=== PATIENT | female | born 1985 | race Caucasian/White ===

== ENCOUNTER 2016-07-27 18:15 | Emergency (ER) | payer MEDICAID ==
[~2016-07-27 18:15] MED LIST: HYDR-3580 PO; NAPR-576 PO; OSEL75 PO; RANI1TAB5 PO; ZOFR4TAB3 SL
--- NOTE | 2016-07-27 19:20 | PD ---
HPI Travel History International Travel<30 Days: No Contact w/Intl Traveler<30Days: No Known Affected Area: No History of Present Illness HPI This patient is a 30-year-old 4 para 3003 EDC is December 31, 2016 this is based on an ultrasound that was done in the main emergency room on May 14 2016 she was approximately [address] the patient now at 17 weeks and 5 days she presents with chief complaint of seeing a pinkish discharge on the tissue when she wipes and cramping in her lower abdomen she states this has been going on for about a week she has not had to put a pad on and there is no blood in her underwear no bright red blood no care to date she has an appointment with Radha Henry this next Positive chills no fever positive nausea and occasional vomiting no diarrhea or constipation some pressure with urination History Past Medical History Narrative Medical Patient is allergic to codeine and contrast media Aparna shellfish Toradol tramadol ultrasound Zithromax Omnipaque Patient has been evaluated for possible seizure disorder she is on no medication however she is seeing a neurologist Obstetric History Obstetric History First baby born 2008 male weight 6 lbs. 11 oz. vaginal delivery second baby born 2010 female infant weight 7 lbs. 5 oz. vaginal delivery third baby born 2014 male weight 6 lbs. 11 oz. vaginal delivery Past Surgical History Narrative Surgical L4 and L5 spinal fusion Family History Narrative Family History Diabetes cancer heart disease Social History Alcohol Use: No Tobacco Use: Yes (half pack of cigarettes per day) Allergies-Medications (Allergen,Severity, Reaction): Coded Allergies: Contrast Media (Verified Allergy, Severe, Itching, 05/14/16) "Itching all over" Omnipaque (IOHEXOL) (Verified Allergy, Severe, ITCHING, 05/14/16) Shellfish (Verified Allergy, Severe, "ANAPHYLAXIS", 05/14/16) Ultram (Verified Allergy, Severe, chest tightness, 05/14/16) Zithromax (Verified Allergy, Severe, "ANAPHYLAXIS", 05/14/16) Codeine (Verified Allergy, Unknown, 05/14/16) Toradol (Verified Allergy, Unknown, 05/14/16) Tramadol (Verified Allergy, Unknown, 05/14/16) Uncoded Allergies: APARNA (Allergy, Unknown, 05/14/16) Home Meds Active Scripts Ranitidine (Ranitidine 75)75 Mg Tab75 Mg PO BID #30 TAB Ref 0 Take 30 to 60 minutes before eating food or drinking beverages that cause heartburn. Prov:Rose Bolivar MD 05/14/16 Ondansetron Odt (Zofran Odt)4 Mg Tab4 Mg SL Q12HR PRN (Nausea/Vomiting) #20 TAB Ref 0 Prov:Rose Bolivar MD 05/14/16 Oseltamivir Phosphate 75 mg (Tamiflu 75 mg)75 Mg Cap1 Cap PO BID #10 CAP Prov:Arnulfo Sexton MD R3 11/18/15 Naproxen 500 Mg [id number] Mg PO BID PRN (pain) #60 TAB Prov:Jolie Chen MD 09/30/15 Reported Medications Hydrocodone/Acetaminophen 7.5 mg/325 mg 1 Tab1 Tab PO TID PRN (PAIN) 05/20/14 Review of Systems General / Constitutional: Chills Eyes: No: Diploplia, Blurred Vision, Visual changes, Pain, Photophobia, Other HENT: No: Headaches, Vertigo, Dental Difficulties, Lightheadedness, Other Cardiovascular: No: Irregular Rhythm, Chest Pain or Discomfort, Palpitations, Tachycardia, Syncope, Varicosities, Edema, Cyanosis, Other Respiratory: No: Cough, Short of Breath, Wheezing, Other Gastrointestinal: Abdominal Pain Genitourinary: Dysuria, Other (pinkish discharge) Musculoskeletal: No: Limited ROM, Weakness, Cramping, Edema, Pain, Other Skin: No Rash, No Itching, No Dryness, No Lumps, No Change in Pigmentation, No Change in Nails, No Alopecia, No Lesions, No Breast Lumps, No Breast Tenderness , No Breast Swelling, No Other Neurologic: No: Weakness, Dizziness, Syncope, Focal Abnormalities, Coordination Problem, Headache, Slurred Speech, Seizures, Other Psychiatric: No: Anxiety, Depression, Suicidal Ideations, Disorder of Thought, Mood Disorder, Substance Abuse, Homicidal Ideation, Other Physical Exam Narrative GENERAL: Well-nourished, well-developed patient. Alert oriented 3 and cooperative in no acute distress SKIN: Warm and dry. HEAD: Normocephalic and atraumatic. EYES: No scleral icterus. No injection or drainage. Conjunctiva are pink ENT: No nasal drainage noted. Mucous membranes pink. Airway patent. NECK: Supple, trachea midline. No JVD. No adenopathy CARDIOVASCULAR: Regular rate and rhythm without murmurs, gallops, or rubs. RESPIRATORY: Breath sounds equal bilaterally. No accessory muscle use. ABDOMEN/GI: Gravid uterus consistent with 18 weeks size mild tenderness over the right and left round ligament no epigastric or right upper quadrant tenderness Gravid to [-] weeks size 18 weeks size Fundal Height: [-] GENITOURINARY: Speculum exam is done there is no pink no brown no red and vagina no active bleeding thin white discharge cervix is visibly closed External Genitalia: intact and normal in appearance BUS glands: [-] Cervix: [-] Posterior firm Dilatation: [-] 0 Effacement: [-] 0 Station: [-] Presentation: [-] Breech on ultrasound Membranes: [intact Uterine Contractions: [-]0 FHT's: Category: [-] Baseline: [-] 140s 150s Reactive: [-] Variability: [-] Decels: [-] EXTREMITIES: No cyanosis or edema. 2+ reflexes BACK: Nontender without obvious deformity. No CVA tenderness. NEUROLOGICAL: Awake and alert. Motor and sensory grossly within normal limits. Five out of 5 muscle strength in all muscle groups. Normal speech. Data Data Vital Signs Reviewed: Yes (blood pressure is 114/62 pulse 97 temperature is 98.5) MDM Medical Record Reviewed: No (no care to date review of ultrasound from previous ER visit) Interpretation(s) 30-year-old presently at 17 weeks and 5 days No clinical evidence of threatened Rule out UTI with hematuria Narrative Course / MDM Urinalysis culture not indicated trace amount of blood however in the urine As the cervix is long and closed No clinical evidence of threatened We'll push by mouth fluids Patient may take Tylenol by mouth Requests something for nausea will give Zofran 4 mg by mouth single dose With the hematuria Will place patient on Keflex 500 mg by mouth 3 times a day for a total of 7 days As this may indicate a hemorrhagic cystitis Plan By mouth fluid hydration Urinalysis Reevaluation Diagnosis Diagnosis: Primary Impression: with 17 completed weeks gestation Additional Impressions: Spotting affecting in second trimester Hematuria Disposition: 01 DISCHARGE HOME Condition: Stable Leslie Clark MD Jul 27, 2016 19:20
[2016-07-27 20:13] LABS: BLOOD, URINE SMALL (NEG); CALCIUM OXALATE CRYSTALS,URINE OCC /hpf; COMMENT (UR) CULT NOT INDICATED; CULTURE IF INDICATED CULT NOT INDICATED; GLUCOSE,URINE NEG (NEG); KETONE, URINE NEG (NEG); MUCUS URINE FEW /lpf (OCC); NITRITE,URINE NEG (NEG); SQUAMOUS EPITHELIAL CELL URINE <1 /hpf (0-5); URINE COLOR YELLOW (YELLW/STRAW)
[2016-07-27] MEDS ORDERED: ONDANSETRON ODT 4 MG TAB PO ONE (20:30)
[2016-09-11] MEDS ORDERED: HYDR-3535 PO (10:18)
[2016-09-11] MEDS ORDERED: ONDA4TAB7 SL (10:49)
[2016-09-11] MEDS ORDERED: CONCCAP2 PO (10:49)
[2016-09-26] MEDS ORDERED: MUPI2OIN TOPICAL (14:39)
[2016-11-21] MEDS ORDERED: ERYTOIN10 LEFT EYE (11:02)
[2016-11-21] MEDS ORDERED: NITR1CAP36 PO (11:04)
== END 2016-07-27 20:32 | disposition home or self-care (01) ==
LOC: HOBED 18:15
DX: O26.852 Spotting complicating pregnancy, second trimester (principal); Z3A.17 17 weeks gestation of pregnancy
CPT/HCPCS: 76815; 81001

== ENCOUNTER 2016-09-05 17:22 | Emergency (ER) | payer MEDICAID ==
[2016-09-05 19:47] LABS: CALCIUM OXALATE CRYSTALS,URINE MANY /hpf; COMMENT (UR) CULT NOT INDICATED; CULTURE IF INDICATED CULT NOT INDICATED; MUCUS URINE FEW /lpf (OCC); SQUAMOUS EPITHELIAL CELL URINE 1 /hpf (0-5)
[2016-09-05 19:49] LABS: BLOOD, URINE SMALL (NEG); GLUCOSE,URINE 100 mg/dL (NEG); KETONE, URINE TRACE mg/dL (NEG); NITRITE,URINE NEG (NEG); URINE COLOR YELLOW (YELLW/STRAW)
--- NOTE | 2016-09-05 20:01 | PD ---
HPI Chief Complaint abdominal pain Date Seen: Sep 05, 2016 Time Seen: 15:45 Travel History International Travel<30 Days: No Contact w/Intl Traveler<30Days: No Known Affected Area: No History of Present Illness HPI 30-year-old female who is at 23-24 weeks gestation with limited care presents due to sharp abdominal pain for the past week that occurs every couple of hours. She is not sure if it's contractions that she is worried about that possibility. She has good movement. Patient is being treated with hydrocodone for chronic pain management. Para: 3 : 4 History Past Medical History Narrative Medical Anxiety chronic pain Possible seizure disorder in the past patient was taken off of Keppra proximally a year ago Anxiety and depression Obstetric History Obstetric History Spontaneous vaginal delivery 3 Past Surgical History Narrative Surgical Spinal fusion Family History Family History: Negative Social History Alcohol Use: No Tobacco Use: Yes Substance Abuse: No Allergies-Medications (Allergen,Severity, Reaction): Coded Allergies: Contrast Media (Verified Allergy, Severe, Itching, 05/14/16) "Itching all over" Omnipaque (IOHEXOL) (Verified Allergy, Severe, ITCHING, 05/14/16) Shellfish (Verified Allergy, Severe, "ANAPHYLAXIS", 05/14/16) Ultram (Verified Allergy, Severe, chest tightness, 05/14/16) Zithromax (Verified Allergy, Severe, "ANAPHYLAXIS", 05/14/16) Codeine (Verified Allergy, Unknown, 05/14/16) Toradol (Verified Allergy, Unknown, 05/14/16) Tramadol (Verified Allergy, Unknown, 05/14/16) Uncoded Allergies: APARNA (Allergy, Unknown, 05/14/16) Home Meds Active Scripts Ranitidine (Ranitidine 75)75 Mg Tab75 Mg PO BID #30 TAB Ref 0 Take 30 to 60 minutes before eating food or drinking beverages that cause heartburn. Prov:Rose Bolivar MD 05/14/16 Ondansetron Odt (Zofran Odt)4 Mg Tab4 Mg SL Q12HR PRN (Nausea/Vomiting) #20 TAB Ref 0 Prov:Rose Bolivar MD 05/14/16 Oseltamivir Phosphate 75 mg (Tamiflu 75 mg)75 Mg Cap1 Cap PO BID #10 CAP Prov:Arnulfo Sexton MD R3 11/18/15 Naproxen 500 Mg [id number] Mg PO BID PRN (pain) #60 TAB Prov:Jolie Chen MD 09/30/15 Reported Medications Hydrocodone/Acetaminophen 7.5 mg/325 mg 1 Tab1 Tab PO TID PRN (PAIN) 05/20/14 Review of Systems Except as stated in HPI: all other systems reviewed are Neg Physical Exam Narrative GENERAL: Well-nourished, well-developed patient. SKIN: Warm and dry. HEAD: Normocephalic and atraumatic. EYES: No scleral icterus. No injection or drainage. ENT: No nasal drainage noted. Mucous membranes pink. Airway patent. NECK: Supple, trachea midline. No JVD. CARDIOVASCULAR: Regular rate and rhythm without murmurs, gallops, or rubs. RESPIRATORY: Breath sounds equal bilaterally. No accessory muscle use. BREASTS: Bilateral exam showed no masses , no retractions, no nipple discharge. ABDOMEN/GI: Abdomen soft, non-tender, bowel sounds present, no rebound, no guarding Gravid to [-22] weeks size Fundal Height: [-] GENITOURINARY: External Genitalia: intact and normal in appearance BUS glands: [-Normal] Cervix: [Posterior-] Dilatation: [-] Sterile speculum examination was performed cervix appears closed fibronectin was collected Effacement: [-] Station: [-] Presentation: [-] Membranes: [intact or ruptured] Uterine Contractions: [-] Absent FHT's: Category: [-1 ] Baseline: [1:30 ] Reactive: [-Moderate] Variability: [-Moderate] Decels: [-Absent] EXTREMITIES: No cyanosis or edema. BACK: Nontender without obvious deformity. No CVA tenderness. NEUROLOGICAL: Awake and alert. Motor and sensory grossly within normal limits. Five out of 5 muscle strength in all muscle groups. Normal speech. Data Data Vital Signs Reviewed: Yes Orders Vital Signs (Adult) .ON ADMISSION (09/05/16 18:15) ^ Labor Status (09/05/16 18:15) Urinalysis - C+S If Indicated (09/05/16 18:15) Fibronectin (09/05/16 18:15) Labs Laboratory Tests Test 3/21/17 3/21/17 17:45 18:10 Urine Color YELLOW Urine Turbidity CLEAR Urine pH 6.0 Urine Specific Beatty 1.030 Urine Protein 30 Urine Glucose (UA) 100 Urine Ketones TRACE Urine Occult Blood SMALL Urine Nitrite NEG Urine Bilirubin NEG Urine Urobilinogen 1.0 Urine Leukocyte Esterase NEG Urine WBC 2 Urine Squamous Epithelial 1 Cells Urine Calcium Oxalate Crystals MANY Urine Mucus FEW Microscopic Urinalysis Comment CULT NOT INDICATED Fibronectin NEGATIVE MDM Plan Patient at 23-24 weeks gestation Negative fibronectin with a normal urinalysis Patient is [facility] Discussed with patient possible change to long-acting opioid management with either methadone or Subutex. Patient and her partner were very upset about this possibility and stated that her previous children were all normal and this would not be considered despite the recommendations obstetrically Diagnosis Diagnosis: Primary Impression: Pelvic pain affecting in second trimester, antepartum Additional Impressions: 23 weeks gestation of Chronic, continuous use of opioids Disposition: 01 DISCHARGE HOME Condition: Stable Patient Instructions: General Instructions, Early Labor Signs (ED), Premature Rupture of Membranes (ED), Labor (ED), Movement (ED) Departure Forms: Tests/Procedures Myla Washington MD Sep 05, 2016 20:01
[2016-09-11] MEDS ORDERED: HYDR-3535 PO (10:18)
[2016-09-11] MEDS ORDERED: CONCCAP2 PO (10:49)
[2016-09-11] MEDS ORDERED: ONDA4TAB7 SL (10:49)
[2016-09-26] MEDS ORDERED: MUPI2OIN TOPICAL (14:39)
[2016-11-21] MEDS ORDERED: ERYTOIN10 LEFT EYE (11:02)
[2016-11-21] MEDS ORDERED: NITR1CAP36 PO (11:04)
== END 2016-09-05 20:08 | disposition home or self-care (01) ==
LOC: HOBED 17:22
DX: O26.892 Other specified pregnancy related conditions, second trimester (principal); R10.2 Pelvic and perineal pain; Z3A.23 23 weeks gestation of pregnancy
CPT/HCPCS: 81001; 82731; 99284

== ENCOUNTER → 2016-11-02 | Outpatient (CLI) | payer MEDICAID ==
[~2016-11-02] MED LIST changes: +CONCCAP2 PO; +ERYTOIN10 LEFT EYE; +HYDR-3535 PO; -HYDR-3580 PO; +MUPI2OIN TOPICAL; -NAPR-576 PO; +NITR1CAP36 PO; +ONDA4TAB7 SL; -OSEL75 PO; -RANI1TAB5 PO; -ZOFR4TAB3 SL
== END ==
LOC: HPND 12:56
PROVIDERS: ATTEND Obstetrics & Gynecology
DX: O99.323 Drug use complicating pregnancy, third trimester (principal); O09.33 Supervision of pregnancy with insufficient antenatal care, third trimester; O99.333 Smoking (tobacco) complicating pregnancy, third trimester; Z87.59 Personal history of other complications of pregnancy, childbirth and the puerperium
CPT/HCPCS: 76811

== ENCOUNTER → 2016-11-26 | Emergency (ER) | payer MEDICAID ==
[~2016-11-26] MED LIST changes: -MUPI2OIN TOPICAL
--- NOTE | 2016-11-26 17:56 | PD ---
HPI Chief Complaint contractions Date Seen: Nov 26, 2016 Time Seen: 17:51 Travel History International Travel<30 Days: No Contact w/Intl Traveler<30Days: No Known Affected Area: No History of Present Illness HPI 31yo at 35-36 weeks gestation here for contractions. Patient has been having Cuming Li contractions for the past 2 weeks but she states that this has become a little bit more frequent than her usual. Patient denies vaginal bleeding and pelvic pain or vaginal discharge. She's been having good movement, with consistent care [facility] and has a follow-up for an ultrasound this week and a regular checkup next week for her group B strep. Patient states that she was fingertip dilated last week. Para: 3 : 4 History Past Medical History Narrative Medical Opioid dependence with Lortab throughout this due to chronic pain from spinal fusion Medical History: Denies Significant Hx Obstetric History Obstetric History Spontaneous vaginal delivery 3 Past Surgical History Narrative Surgical Spinal fusion Family History Family History: Negative Social History Alcohol Use: No Tobacco Use: No Substance Abuse: No Allergies-Medications (Allergen,Severity, Reaction): Coded Allergies: Contrast Media (Verified Allergy, Severe, Itching, 11/21/16) "Itching all over" Omnipaque (IOHEXOL) (Verified Allergy, Severe, ITCHING, 11/21/16) Shellfish (Verified Allergy, Severe, "ANAPHYLAXIS", 11/21/16) Ultram (Verified Allergy, Severe, chest tightness, 11/21/16) Zithromax (Verified Allergy, Severe, "ANAPHYLAXIS", 11/21/16) Codeine (Verified Allergy, Unknown, 11/21/16) Penicillin (Verified Allergy, Unknown, 11/21/16) Toradol (Verified Allergy, Unknown, 11/21/16) Tramadol (Verified Allergy, Unknown, 11/21/16) Uncoded Allergies: APARNA (Allergy, Unknown, 05/14/16) Home Meds Active Scripts Nitrofurantoin Macrocrystal 100 Mg [id number] Mg PO BID #10 CAP Ref 10 Prov:Uri Padilla MD 11/21/16 Erythromycin Opth Oint 5 Mg/Gm Oint1 Applic LEFT EYE QID #1 TUBE Ref 1 Prov:Uri Padilla MD 11/21/16 Ondansetron Odt 4 Mg Tab4 Mg SL Q12HR PRN (Nausea/Vomiting) #20 TAB Ref 0 Prov:Johanne Lim 09/11/16 Vit W/ Fe Fum-Iron Po (Concept Dha 53.5-38-1 mg)1 Cap Cap1 Tab PO DAILY #30 BOTTLE Ref 11 Prov:Johanne LimTimi ROY 09/11/16 Reported Medications Hydrocodone-Acetaminophen (Lortab)10-325 Mg Tab1 Tab PO Q4H PRN (PAIN) Ref 0 09/11/16 Discontinued Scripts Mupirocin Topical 2 % Oint1 Applic TOPICAL BID #22 GM Ref 2 Prov:Arnulfo Sexton MD R3 09/26/16 Review of Systems Except as stated in HPI: all other systems reviewed are Neg Physical Exam Narrative GENERAL: Well-nourished, well-developed patient. SKIN: Warm and dry. HEAD: Normocephalic and atraumatic. EYES: No scleral icterus. No injection or drainage. ENT: No nasal drainage noted. Mucous membranes pink. Airway patent. NECK: Supple, trachea midline. No JVD. CARDIOVASCULAR: Regular rate and rhythm without murmurs, gallops, or rubs. RESPIRATORY: Breath sounds equal bilaterally. No accessory muscle use. BREASTS: Bilateral exam showed no masses , no retractions, no nipple discharge. ABDOMEN/GI: Abdomen soft, non-tender, bowel sounds present, no rebound, no guarding Gravid to [-35] weeks size Fundal Height: [-] GENITOURINARY: External Genitalia: intact and normal in appearance BUS glands: [Normal-] Cervix: [-Posterior] Dilatation: [-Fingertip] Effacement: [-Long] Station: [--3] Presentation: [-Vertex] Membranes: [intact] Uterine Contractions: [-Occasional] FHT's: Category: [1-] Baseline: [140-] Reactive: [-Moderate] Variability: [Moderate-] Decels: [Absent-] EXTREMITIES: No cyanosis or edema. BACK: Nontender without obvious deformity. No CVA tenderness. NEUROLOGICAL: Awake and alert. Motor and sensory grossly within normal limits. Five out of 5 muscle strength in all muscle groups. Normal speech. Data Data Vital Signs Reviewed: Yes [facility] Medical Record Reviewed: Yes Plan 31-year-old who is at 35-36 weeks gestation here for contractions, patient 's not labor at this time and shows no cervical change since her last visit last week and is not having consistent contractions Patient will follow up for her ultrasound this week and her exam next week as scheduled Diagnosis Diagnosis: Primary Impression: False labor before 37 completed weeks of gestation Additional Impressions: Drug dependence affecting in third trimester 35 weeks gestation of Disposition: 01 DISCHARGE HOME Myla Washington MD Nov 26, 2016 17:56
== END | disposition home or self-care (01) ==
LOC: HOBED 17:10
DX: O47.9 False labor, unspecified (principal); O99.323 Drug use complicating pregnancy, third trimester; Z3A.37 37 weeks gestation of pregnancy; F11.20 Opioid dependence, uncomplicated
CPT/HCPCS: 99281

== ENCOUNTER → 2016-11-30 | Outpatient (CLI) | payer MEDICAID | LOC: HPND 12:47 | PROVIDERS: ATTEND Obstetrics & Gynecology | DX: O99.323 Drug use complicating pregnancy, third trimester (principal); O09.33 Supervision of pregnancy with insufficient antenatal care, third trimester; O99.333 Smoking (tobacco) complicating pregnancy, third trimester; O09.293 Supervision of pregnancy with other poor reproductive or obstetric history, third trimester; Z3A.35 35 weeks gestation of pregnancy | CPT/HCPCS: 76816 ==